=== PATIENT | male | born 1950 | race Caucasian/White ===

== ENCOUNTER 2017-03-02 20:28 | Inpatient (IN) ==
[2017-03-03 05:18] LABS: Basophils % 0.8 %; Eosinophils # 0.1 K/mcL (0.0-0.6); Eosinophils % 1.7 %; Hematocrit 29.9 % (37.5-50.1); Hemoglobin 10.5 g/dL (12.9-16.9); Immature Granulocytes % 0.2 % (0-4); Lymphocytes # 1.9 K/mcL (0.6-4.6); Lymphocytes % 35.1 %; Mean Corpuscular HGB Conc 35.1 g/dL (31.6-35.5); Mean Corpuscular Hemoglobin 34.4 pg (28.0-33.3); Mean Platelet Volume 9.9 fL (9.4-12.4); Monocytes # 0.8 K/mcL (0.0-1.3); Monocytes % 14.8 %; Neutrophils # 2.5 K/mcL (1.6-8.9); Platelet Count 395 K/mcL (140-400); Red Blood Count 3.05 M/mcL (4.19-5.50); Red Cell Distribution Width 12.7 % (11.5-14.5); Segmented Neutrophils % 47.4 %
[2017-03-03 05:34] LABS: INR 1.4; Prothrombin Time 15.4 Seconds (9.4-12.1)
[2017-03-03 05:36] LABS: Activated Partial Thrombo Time 35.9 Seconds (26.0-36.0)
[2017-03-03 05:38] LABS: BUN/Creatinine Ratio 13 (6-26); Blood Urea Nitrogen 9 mg/dL (8-26); Calcium 9.5 mg/dL (8.6-10.8); Carbon Dioxide 21 mEq/L (19-29); Chloride 104 mEq/L (98-109); Glucose 136 mg/dL (70-99); Osmolality,Calculated 277 (280-300); Sodium 133 mEq/L (136-145); eGFR For African Americans > 60 (> 60); eGFR For Non-African Americans > 60 (> 60)
[2017-03-03] MEDS: Magnesium Oxide 400 MG TABLET PO SCH ×2 (09:51→20:52)
[2017-03-03] MEDS: Folic Acid 1 MG TABLET PO SCH (09:51)
[2017-03-03] MEDS: Cyanocobalamin (B-12) 1,000 MCG TABLET PO SCH (09:51)
[2017-03-03] MEDS: *HR* Enoxaparin 40 MG/0.4 ML SYRINGE SQ SCH (09:52)
[2017-03-03] MEDS: Multivit/Ca/Min/Fe/FA 1 TAB TABLET PO SCH (09:52)
[2017-03-03] MEDS: Isosorbide MONOnitrate (24 HR) 30 MG TAB.ER.24H PO SCH (09:52)
[2017-03-03] MEDS: Aspirin Enteric Coated 81 MG Tablet PO SCH (09:52)
[2017-03-03] MEDS: Thiamine (B-1) 100 MG TABLET PO SCH (09:52)
--- NOTE | 2017-03-03 13:29 | Internal Med History&Physical ---
Date of Encounter: 03/03/17 Time of Encounter: 13:27 Assessment and Plan (1) Alcohol withdrawal Current visit: Yes Status: Resolved Possibly was related to the seizure that he had upon admission. Qualifiers: Complication of substance-induced condition: with unspecified complication Qualified Code(s): F10.239 - Alcohol dependence with withdrawal, unspecified (2) Hypertension Current visit: No Status: Chronic Cb size a total well blood pressure is normal Qualifiers: Hypertension type: essential hypertension Qualified Code(s): I10 - Essential (primary) hypertension (3) Lipidemia Current visit: No Status: Acute Positive by history Qualifiers: Hyperlipidemia type: unspecified Qualified Code(s): E78.5 - Hyperlipidemia , unspecified (4) History of alcohol abuse Current visit: No Status: Acute Apparently long-term EtOH use Internal Medicine - H&P: HPI Chief complaint: Seizure EtOH abuse dementia patient's here now for endurance and increasing Admitted From: Hospital to Hospital Transfer Plans for Post Hospital Care: Home History of present illness: Mr. Martin is a 66 year old male Patient was secondary to 8 user had a seizure here low sodium potassium and then became confused and demented and had a difficult time. He still has some confusion and he is cooperative during the day still showing some anxiety and agitation at night Past Med Surg Social Fam HX - Past Medical History Medical history: hyperlipidemia, hypertension, seizures (etoh abuse) Psychiatric history: no psych history - Social History Smoking Status: Former smoker Smokeless Tobacco Status: No Alcohol use: occasionally Drug use: none Internal Medicine - H&P: Meds Aspirin [Lo-Dose Aspirin EC] 81 mg PO DAILY 12/18/16 [History] Atorvastatin [Lipitor] 40 mg PO HS 12/18/16 [History] Calcium/Vit B12/FA/Pyridoxine [Folic Acid-Vit B6-Vit B12 Tab] 400 mg PO DAILY [History] Carvedilol [Coreg] 25 mg PO BID 12/18/16 [History] Cyanocobalamin (Vitamin B-12) [Vitamin B12] 1,000 mcg PO DAILY 12/18/16 [History ] Isosorbide MONOnitrate (24 HR) [Imdur] 15 mg PO DAILY 12/18/16 [History] Docusate [Colace] 100 mg PO BID PRN 03/02/17 [Rx] Ferrous Sulfate 325 mg PO DAILY tab 03/02/17 [Rx] Folic Acid 1 mg PO DAILY tab 03/02/17 [Rx] Magnesium Oxide [Mag-Ox] 400 mg PO BID tab 03/02/17 [Rx] Multivit/Ca/Min/Fe/FA [Thera M Plus] 1 tab PO DAILY tab 03/02/17 [Rx] Quetiapine Fumarate [Seroquel] 50 mg PO HS #15 tab 03/02/17 [Rx] Thiamine (B-1) [Vitamin B-1] 100 mg PO DAILY tab 03/02/17 [Rx] 3 Allergy/AdvReac Type Severity Reaction Status Date / Time No Known Allergies Allergy Verified 03/02/17 20:57 All Systems PM: A 10-system review of systems was performed and is negative for pertinent findings except as documented above in the HPI. - Constitutional Vitals: Temp Pulse Resp BP Pulse Ox 97.6 F 70 18 145/83 97 03/03/17 11:40 03/03/17 11:40 03/03/17 11:40 03/03/17 11:40 03/03/17 11:40 - Head Head exam: Present: atraumatic, normal inspection, normocephalic - Neck Neck exam general surgery: Present: supple, trachea midline. Absent: lymphadenopathy - Respiratory Respiratory exam: Present: CTAB. Absent: accessory muscle use, rales, rhonchi, wheezes - Cardiovascular Cardiovascular exam: Present: RRR, +S1, +S2. Absent: diastolic murmur, gallop, rubs, systolic murmur - Psychiatric Additional comments: Agitation is mostly at night, during the day but some confusion still exists Internal Med - H&P Results - Labs CBC & Chem 7: 03/03/17 05:00 03/03/17 04:50 Labs: Short CBC 03/03/17 Range/Units 05:00 WBC 5.3 (4.3-11.1) K/mcL Hgb 10.5 L (12.9-16.9) g/dL Hct 29.9 L (37.5-50.1) % Plt Count 395 (140-400) K/mcL Neutrophils # 2.5 (1.6-8.9) K/mcL BMP 03/03/17 04:50 Sodium 133 L Potassium 4.0 Chloride 104 Carbon Dioxide 21 BUN 9 Creatinine 0.67 L Glucose 136 H Calcium 9.5 The lab looks pretty good right now
[2017-03-04] MEDS: Ibuprofen 400 MG TABLET PO PRN (03:31)
--- NOTE | 2017-03-04 09:26 | Internal Med Progress Note ---
Date of Encounter: 03/04/17 Time of Encounter: 09:24 - Assessment and plan (1) Anemia Current Visit: No Status: Acute Assessment and plan: Noted to have low H/H he has hx of ETOH abuse labs for iron etc supplment Stool for guiace if not done yet Qualifiers: Anemia type: iron deficiency Iron deficiency anemia type: unspecified iron deficiency Qualified Code(s): D50.9 - Iron deficiency anemia, unspecified (2) Coronary artery disease Current Visit: No Status: Chronic Assessment and plan: stable continue present meds Qualifiers: Coronary Disease-Associated Artery/Lesion type: bypass graft [place] vs. transplanted heart: [place] heart Associated angina: without angina Qualified Code(s): I25.810 - Atherosclerosis of coronary artery bypass graft(s) without angina pectoris (3) Hypertension Current Visit: No Status: Chronic Assessment and plan: stable no new change continue present meds Qualifiers: Hypertension type: essential hypertension Qualified Code(s): I10 - Essential (primary) hypertension (4) Delirium due to another medical condition Current Visit: Yes Status: Acute Assessment and plan: He is doing fine and is back to his normal self . He required a sitter last night however there was no incident . Avoid all meds causing confusion . He wants to go home . He is mentally competent if he decides to go home . Discussed with family . he will benefit with getting his rehab (5) Fracture, ribs Current Visit: Yes Status: Acute Assessment and plan: he has fracture ribs left 7,8,10th Pain control . Local lidoderm nd Motrin with PPI Qualifiers: Rib fracture type: multiple ribs Fracture type: closed Laterality: left Qualified Code(s): S22.42XA - Multiple fractures of ribs, left side, initial encounter for closed fracture - Subjective Interval history: Seen for the first time as cross coverage . Admitted for ETOH withdrawal which has been resolved and now for rehab and to get his strength back to base line He denies any acute issues . Alert and orient and wants to go home . No chest pain Nausea vomiting or diarrhea . eating well . - Constitutional Vitals: Temp Pulse Resp BP Pulse Ox 97.7 F 61 18 124/89 99 03/04/17 07:44 03/04/17 07:44 03/04/17 07:44 03/04/17 07:44 03/04/17 07:44 General appearance: Present: A&O X 3, pleasant, no acute distress, answers questions appropriately. Absent: morbidly obese, severe distress - Head Head exam: Present: atraumatic - Eye Eye exam: Present: EOMI, PERRL Pupils: Present: PERRL - Neck Neck exam general surgery: Present: supple. Absent: tenderness, nuchal rigidity - Respiratory Respiratory exam: Present: chest wall tenderness, CTAB. Absent: accessory muscle use, respiratory distress, rhonchi, stridor, wheezes, tachypnea Additional comments: mild tenderness on side on ribs Chest essnetially clear - Cardiovascular Cardiovascular exam: Present: RRR, +S1, +S2. Absent: diastolic murmur, distant heart sounds, irregular rhythm, JVD - GI/Abdominal GI/Abdominal exam: Present: normal bowel sounds, soft. Absent: firm, guarding - Neurological Exam Neurological exam: Present: CN II-XII intact, oriented X3, no focal deficits. Absent: facial droop, speech deficit Additional comments: No focal; deficit . Examination is within normal limits . He understands and is competent to make decision. Internal Medicine: Result - Labs CBC & Chem 7: 03/03/17 05:00 03/03/17 04:50 - ABG Interpretation ABG results: PT/INR, D-dimer PT 15.4 Seconds (9.4-12.1) H 03/03/17 04:50 Consult Discharge Plan - Plan Referrals: NONE,PCP [Primary Care Provider] -
[2017-03-04] MEDS: Folic Acid 1 MG TABLET PO SCH (09:36)
[2017-03-04] MEDS: Magnesium Oxide 400 MG TABLET PO SCH ×2 (09:36→20:47)
[2017-03-04] MEDS: Isosorbide MONOnitrate (24 HR) 30 MG TAB.ER.24H PO SCH (09:36)
[2017-03-04] MEDS: Multivit/Ca/Min/Fe/FA 1 TAB TABLET PO SCH (09:36)
[2017-03-04] MEDS: Aspirin Enteric Coated 81 MG Tablet PO SCH (09:36)
[2017-03-04] MEDS: Cyanocobalamin (B-12) 1,000 MCG TABLET PO SCH (09:36)
[2017-03-04] MEDS: *HR* Enoxaparin 40 MG/0.4 ML SYRINGE SQ SCH (09:37)
[2017-03-04] MEDS: Thiamine (B-1) 100 MG TABLET PO SCH (09:37)
--- NOTE | 2017-03-05 08:35 | Internal Med Progress Note ---
Date of Encounter: 03/05/17 Time of Encounter: 08:33 - Assessment and plan (1) Anemia Current Visit: No Status: Acute Assessment and plan: [place] sent On iron now , He has not had Colonoscopy or any other workup yet discussed with him and this al could be done as out pt. he has long hcx of ETOH abuse could be upper GI loss as well There was mildy high blood sugars noted as well however this was random .May needs to be re asses again Qualifiers: Anemia type: iron deficiency Iron deficiency anemia type: unspecified iron deficiency Qualified Code(s): D50.9 - Iron deficiency anemia, unspecified (2) Coronary artery disease Current Visit: No Status: Chronic Assessment and plan: Stable no new change . Qualifiers: Coronary Disease-Associated Artery/Lesion type: bypass graft [place] vs. 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 This was all due to his Alcohol withdrawal Some confusion at night but based on his MRI brain he has small vessel disease and atrophy including use of ETOH abuse so he could have mild dementia as well . A proper workup and assessment might be helpful as out patient. At the present time he is fully alert and back to his base line Plan is to have social studies department chair work with family , refer him to an out patient rehab if needed and an out patient rehab (5) Fracture, ribs Current Visit: Yes Status: Acute Assessment and plan: stable pain is well controlled on pRN meds and local lidoderm patch Qualifiers: Rib fracture type: multiple ribs Fracture type: closed Laterality: left Qualified Code(s): S22.42XA - Multiple fractures of ribs, left side, initial encounter for closed fracture - Subjective Interval history: Cross coverage He is doing very well alert and oriented and participating in Rehab .There was some confusion and restlessness at night however didn't require a sitter overall no complains - Constitutional Vitals: Temp Pulse Resp BP Pulse Ox 97.8 F 69 18 150/80 98 03/05/17 07:56 03/05/17 07:56 03/05/17 07:56 03/05/17 07:56 03/05/17 07:56 General appearance: Present: cooperative, A&O X 3, pleasant, no acute distress, answers questions appropriately. Absent: morbidly obese, severe distress - Head Head exam: Present: atraumatic - Eye Eye exam: Present: EOMI, PERRL, conjuntiva pink. Absent: scleral icterus Pupils: Present: PERRL - Neck Neck exam general surgery: Present: supple. Absent: tenderness, nuchal rigidity - Respiratory Respiratory exam: Present: CTAB. Absent: rales, respiratory distress, stridor, wheezes - Cardiovascular Cardiovascular exam: Present: RRR, +S1, +S2. Absent: diastolic murmur, irregular rhythm, JVD, systolic murmur - GI/Abdominal GI/Abdominal exam: Present: normal bowel sounds, soft. Absent: guarding, rigid - Neurological Exam Neurological exam: Present: CN II-XII intact, oriented X3, no focal deficits. Absent: facial droop, speech deficit Additional comments: Non focal examination Internal Medicine: Result - Labs CBC & Chem 7: 03/03/17 05:00 03/03/17 04:50 - ABG Interpretation ABG results: PT/INR, D-dimer PT 15.4 Seconds (9.4-12.1) H 03/03/17 04:50 Consult Discharge Plan - Plan Referrals: NONE,PCP [Primary Care Provider] -
[2017-03-05] MEDS: *HR* Enoxaparin 40 MG/0.4 ML SYRINGE SQ SCH (09:02)
[2017-03-05] MEDS: Folic Acid 1 MG TABLET PO SCH (09:03)
[2017-03-05] MEDS: Thiamine (B-1) 100 MG TABLET PO SCH (09:03)
[2017-03-05] MEDS: Ibuprofen 400 MG TABLET PO PRN ×2 (09:03→21:45)
[2017-03-05] MEDS: Cyanocobalamin (B-12) 1,000 MCG TABLET PO SCH (09:03)
[2017-03-05] MEDS: Aspirin Enteric Coated 81 MG Tablet PO SCH (09:03)
[2017-03-05] MEDS: Isosorbide MONOnitrate (24 HR) 30 MG TAB.ER.24H PO SCH (09:03)
[2017-03-05] MEDS: Magnesium Oxide 400 MG TABLET PO SCH ×2 (09:03→20:12)
[2017-03-05] MEDS: Multivit/Ca/Min/Fe/FA 1 TAB TABLET PO SCH (09:03)
[2017-03-06 05:23] LABS: Basophils % 0.7 %; Eosinophils # 0.3 K/mcL (0.0-0.6); Eosinophils % 4.6 %; Hematocrit 30.3 % (37.5-50.1); Hemoglobin 10.5 g/dL (12.9-16.9); Immature Granulocytes % 0.5 % (0-4); Lymphocytes # 1.9 K/mcL (0.6-4.6); Lymphocytes % 34.3 %; Mean Corpuscular HGB Conc 34.7 g/dL (31.6-35.5); Mean Corpuscular Hemoglobin 34.1 pg (28.0-33.3); Mean Corpuscular Volume 98.4 fL (83.0-100.0); Mean Platelet Volume 9.4 fL (9.4-12.4); Monocytes # 0.9 K/mcL (0.0-1.3); Monocytes % 15.7 %; Neutrophils # 2.5 K/mcL (1.6-8.9); Platelet Count 402 K/mcL (140-400); Red Blood Count 3.08 M/mcL (4.19-5.50); Red Cell Distribution Width 12.8 % (11.5-14.5); Segmented Neutrophils % 44.2 %
[2017-03-06 05:33] LABS: BUN/Creatinine Ratio 13 (6-26); Blood Urea Nitrogen 9 mg/dL (8-26); Calcium 9.6 mg/dL (8.6-10.8); Carbon Dioxide 25 mEq/L (19-29); Chloride 104 mEq/L (98-109); Glucose 93 mg/dL (70-99); Osmolality,Calculated 278 (280-300); Potassium 4.2 mEq/L (3.5-4.5); Sodium 135 mEq/L (136-145); eGFR For African Americans > 60 (> 60); eGFR For Non-African Americans > 60 (> 60)
[2017-03-06 07:05] VITALS: BP 128/71
[2017-03-06] MEDS: Isosorbide MONOnitrate (24 HR) 30 MG TAB.ER.24H PO SCH (09:37)
[2017-03-06] MEDS: Cyanocobalamin (B-12) 1,000 MCG TABLET PO SCH (09:46)
[2017-03-06] MEDS: Multivit/Ca/Min/Fe/FA 1 TAB TABLET PO SCH (09:46)
[2017-03-06] MEDS: Magnesium Oxide 400 MG TABLET PO SCH (09:46)
[2017-03-06] MEDS: Thiamine (B-1) 100 MG TABLET PO SCH (09:46)
[2017-03-06] MEDS: *HR* Enoxaparin 40 MG/0.4 ML SYRINGE SQ SCH (09:46)
[2017-03-06] MEDS: Folic Acid 1 MG TABLET PO SCH (09:46)
[2017-03-06] MEDS: Aspirin Enteric Coated 81 MG Tablet PO SCH (09:46)
[2017-03-06] MEDS: Ibuprofen 400 MG TABLET PO PRN (09:46)
--- NOTE | 2017-03-06 14:12 | Discharge Summary ---
Date of Encounter: 03/06/17 Time of Encounter: 14:10 - Discharge Diagnosis (1) Alcohol withdrawal Priority: Primary Status: Chronic Qualifiers: Complication of substance-induced condition: with unspecified complication Qualified Code(s): F10.239 - Alcohol dependence with withdrawal, unspecified (2) Hypertension Priority: Secondary Status: Chronic Qualifiers: Hypertension type: essential hypertension Qualified Code(s): I10 - Essential (primary) hypertension (3) Lipidemia Priority: Secondary Status: Acute Qualifiers: Hyperlipidemia type: unspecified Qualified Code(s): E78.5 - Hyperlipidemia , unspecified (4) History of alcohol abuse Priority: Primary Status: Acute - Discharge Medications Home Medications: Aspirin [Lo-Dose Aspirin EC] 81 mg PO DAILY 12/18/16 [History] Atorvastatin [Lipitor] 40 mg PO HS 12/18/16 [History] Calcium/Vit B12/FA/Pyridoxine [Folic Acid-Vit B6-Vit B12 Tab] 400 mg PO DAILY [History] Carvedilol [Coreg] 25 mg PO BID 12/18/16 [History] Cyanocobalamin (Vitamin B-12) [Vitamin B12] 1,000 mcg PO DAILY 12/18/16 [History ] Isosorbide MONOnitrate (24 HR) [Imdur] 15 mg PO DAILY 12/18/16 [History] Docusate [Colace] 100 mg PO BID PRN 03/02/17 [Rx] Ferrous Sulfate 325 mg PO DAILY tab 03/02/17 [Rx] Folic Acid 1 mg PO DAILY tab 03/02/17 [Rx] Magnesium Oxide [Mag-Ox] 400 mg PO BID tab 03/02/17 [Rx] Multivit/Ca/Min/Fe/FA [Thera M Plus] 1 tab PO DAILY tab 03/02/17 [Rx] Quetiapine Fumarate [Seroquel] 50 mg PO HS #15 tab 03/02/17 [Rx] Thiamine (B-1) [Vitamin B-1] 100 mg PO DAILY tab 03/02/17 [Rx] Allergies/Adverse Reactions: 3 Allergy/AdvReac Type Severity Reaction Status Date / Time No Known Allergies Allergy Verified 03/02/17 20:57 Date of admission: 03/02/17 20:28 Primary care physician: PCP NONE Consults: 03/02/17 21:21 Consult to Occupational Therapy [CONS] Routine Comment: Evaluation for treatment Reason for Consult: Eval Consult to Physical Therapy [CONS] Routine Comment: Evaluation for treatment Reason for Consult: Eval Consult to Recreational Therapy [CONS] Routine Comment: Discharging clinician: Carlos Manuel Blackmon Anticipated date of discharge: 03/06/17 - Discharge Instructions Follow Up With: NONE,PCP [Primary Care Provider] - Hospital course: Mr. Martin is a 66 year old male Patient had a hyponatremic episode in addition to that had a serious EtOH problem and suffered a grand mal seizure. He was transferred to [place] where he was very confused combative and demented for some time. My concern is whether permanent damage has I question the possibility of Wernicke Korsakoff syndrome. He has a wide stance gait and slightly bent over ambulation. been done - Time Spent with Patient Total time spent providing and/or coordinating discharge services: - Constitutional Vitals: Temp Pulse Resp BP Pulse Ox 98.1 F 61 15 128/71 95 03/06/17 07:00 03/06/17 11:04 03/06/17 11:04 03/06/17 11:04 03/06/17 11:04 General appearance: Present: cooperative, A&O X 3, pleasant, no acute distress, answers questions appropriately. Absent: morbidly obese, severe distress
== END 2017-03-06 14:35 | disposition home or self-care (01) | DRG 556 ==
LOC: INPGRE 20:28
PROVIDERS: ADMIT Internal Medicine; ATTEND Internal Medicine

== ENCOUNTER 2020-05-14 16:23 | Inpatient (IN) ==
[2020-05-15] MEDS: carvediloL 25 MG TABLET PO SCH (19:42)
[2020-05-16] MEDS: *HR* Enoxaparin 40 MG/0.4 ML SYRINGE SQ SCH (04:52)
[2020-05-16 06:03] LABS: Basophils # 0.1 K/mcL (0.0-0.2); Basophils % 1.1 %; Eosinophils # 0.1 K/mcL (0.0-0.6); Eosinophils % 2.3 %; Hematocrit 22.3 % (37.5-50.1); Hemoglobin 8.3 g/dL (12.9-16.9); Immature Granulocytes % 0.2 % (0-4); Lymphocytes # 1.9 K/mcL (0.6-4.6); Lymphocytes % 42.2 %; Mean Corpuscular HGB Conc 37.2 g/dL (31.6-35.5); Mean Corpuscular Hemoglobin 36.4 pg (28.0-33.3); Mean Corpuscular Volume 97.8 fL (83.0-100.0); Mean Platelet Volume 8.7 fL (9.4-12.4); Monocytes # 0.7 K/mcL (0.0-1.3); Monocytes % 16.3 %; Neutrophils # 1.7 K/mcL (1.6-8.9); Platelet Count 147 K/mcL (140-400); Red Blood Count 2.28 M/mcL (4.19-5.50); Red Cell Distribution Width 11.9 % (11.5-14.5); Segmented Neutrophils % 37.9 %; White Blood Count 4.4 K/mcL (4.3-11.1)
[2020-05-16 06:21] LABS: Alanine Aminotransferase 39 Units/L (7-52); Albumin 3.7 g/dL (3.5-5.7); Albumin/Globulin Ratio 1.9 (1.1-2.2); Alkaline Phosphatase 44 Units/L (34-104); Aspartate Amino Transferase 32 Units/L (13-39); BUN/Creatinine Ratio 17 (6-26); Bilirubin,Total 0.6 mg/dL (0.3-1.0); Blood Urea Nitrogen 9 mg/dL (8-23); Calcium 8.7 mg/dL (8.6-10.3); Carbon Dioxide 23 mEq/L (23-29); Chloride 96 mEq/L (98-107); Globulin 1.9 g/dL (2.4-3.5); Glucose 100 mg/dL (70-105); Magnesium 1.8 mg/dL (1.6-2.6); Osmolality,Calculated 259 (280-300); Potassium 3.6 mEq/L (3.5-5.1); Sodium 125 mEq/L (136-145); Total Protein 5.6 g/dL (6.4-8.9); eGFR For African Americans > 60 (> 60); eGFR For Non-African Americans > 60 (> 60)
[2020-05-16] MEDS: carvediloL 25 MG TABLET PO SCH ×2 (09:17→20:48)
[2020-05-16] MEDS: Isosorbide MONOnitrate (24 HR) 30 MG TAB.ER.24H PO SCH (09:17)
[2020-05-16] MEDS: Aspirin Enteric Coated 81 MG Tablet PO SCH (09:17)
[2020-05-16] MEDS: amLODIPine 5 MG TABLET PO SCH (09:17)
[2020-05-16 15:16] LABS: Bilirubin,Urine Negative (Negative); Blood,Urine Negative (Negative); Clarity,Urine Clear (Clear); Color,Urine Yellow (Yellow); Glucose,Urine (UA) 250 mg/dL (Normal); Ketones,Urine Negative (Negative); Leukocyte Esterase,Urine Negative (Negative); Nitrite,Urine Negative (Negative); PH,Urine 6.5 pH Units (5.0-8.0); Protein,Urine Negative (Neg-Trace); Specific Gravity,Urine 1.025 (1.010-1.025); Urobilinogen,Urine Normal (Normal)
[2020-05-16 15:49] LABS: Squamous Epithelial Cell,Urine Few per hpf (None-Few)
[2020-05-16] MEDS ORDERED: *HR* Dextrose 50 % in Water (Vial) 50 ML VIAL IVP PRN (18:23)
[2020-05-16] MEDS ORDERED: Dextrose Gel 15 GM/37.5 ML TUBE PO PRN ×2 (18:23)
[2020-05-16] MEDS ORDERED: D5% in Water 1,000 ML IVC PRN (18:23)
[2020-05-16] MEDS: Insulin LISPRO 300 UNITS/3 ML VIAL SQ SCH (20:45)
[2020-05-17 06:17] LABS: Basophils % 0.7 %; Eosinophils # 0.1 K/mcL (0.0-0.6); Eosinophils % 1.4 %; Hematocrit 21.1 % (37.5-50.1); Hemoglobin 7.8 g/dL (12.9-16.9); Immature Granulocytes % 0.5 % (0-4); Lymphocytes # 1.6 K/mcL (0.6-4.6); Lymphocytes % 37.2 %; Mean Corpuscular Hemoglobin 36.3 pg (28.0-33.3); Mean Corpuscular Volume 98.1 fL (83.0-100.0); Mean Platelet Volume 8.9 fL (9.4-12.4); Monocytes # 0.8 K/mcL (0.0-1.3); Monocytes % 19.7 %; Neutrophils # 1.7 K/mcL (1.6-8.9); Platelet Count 171 K/mcL (140-400); Red Blood Count 2.15 M/mcL (4.19-5.50); Red Cell Distribution Width 11.8 % (11.5-14.5); Segmented Neutrophils % 40.5 %; White Blood Count 4.2 K/mcL (4.3-11.1)
[2020-05-17] MEDS: *HR* Enoxaparin 40 MG/0.4 ML SYRINGE SQ SCH (06:25)
[2020-05-17 06:29] LABS: BUN/Creatinine Ratio 13 (6-26); Blood Urea Nitrogen 7 mg/dL (8-23); Calcium 8.8 mg/dL (8.6-10.3); Carbon Dioxide 25 mEq/L (23-29); Chloride 96 mEq/L (98-107); Glucose 98 mg/dL (70-105); Osmolality,Calculated 260 (280-300); Potassium 3.7 mEq/L (3.5-5.1); Sodium 126 mEq/L (136-145); eGFR For African Americans > 60 (> 60); eGFR For Non-African Americans > 60 (> 60)
[2020-05-17] MEDS: Insulin LISPRO 300 UNITS/3 ML VIAL SQ SCH ×4 (09:30→20:02)
[2020-05-17] MEDS: Aspirin Enteric Coated 81 MG Tablet PO SCH (09:30)
[2020-05-17] MEDS: amLODIPine 5 MG TABLET PO SCH (09:31)
[2020-05-17] MEDS: Isosorbide MONOnitrate (24 HR) 30 MG TAB.ER.24H PO SCH (09:31)
[2020-05-17] MEDS: carvediloL 25 MG TABLET PO SCH ×2 (09:31→20:43)
[2020-05-18] MEDS: *HR* Enoxaparin 40 MG/0.4 ML SYRINGE SQ SCH (06:27)
[2020-05-18 07:06] VITALS: BP 121/70
[2020-05-18] MEDS: carvediloL 25 MG TABLET PO SCH (09:09)
[2020-05-18] MEDS: Aspirin Enteric Coated 81 MG Tablet PO SCH (09:09)
[2020-05-18] MEDS: amLODIPine 5 MG TABLET PO SCH (09:09)
[2020-05-18] MEDS: Insulin LISPRO 300 UNITS/3 ML VIAL SQ SCH ×2 (09:09→12:09)
[2020-05-18] MEDS: Isosorbide MONOnitrate (24 HR) 30 MG TAB.ER.24H PO SCH (09:10)
[2020-05-18 09:52] LABS: Estimated Average Glucose 117 mg/dl
== END 2020-05-18 14:30 | disposition home or self-care (01) | DRG 641 ==
LOC: INPGRE 05-15 17:27
PROVIDERS: ADMIT Family Medicine; ATTEND Family Medicine

== ENCOUNTER 2021-10-21 14:44 | Inpatient (IN) ==
[2021-10-21] MEDS ORDERED: Saline Nasal Spray 44 ML BOTTLE NS PRN (16:11)
[2021-10-21] MEDS ORDERED: Nicotine 2 MG GUM BC PRN (16:11)
[2021-10-21] MEDS: QUEtiapine Fumarate 25 MG TABLET PO SCH (22:07)
[2021-10-21] MEDS: *HR* HYDROcodone/Acet 5/325 mg TABLET PO PRN (22:07)
[2021-10-21] MEDS: Artificial Tears SOLN 15 ML BOTTLE BOTH EYES SCH (22:13)
[2021-10-21] MEDS: carvediloL 25 MG TABLET PO SCH (22:29)
[2021-10-21] MEDS ORDERED: Mag Hydrox/Al Hydrox/Simeth 30 ML UDC PO PRN (23:12)
[2021-10-22] MEDS: *HR* HYDROcodone/Acet 5/325 mg TABLET PO PRN ×2 (04:11→20:05)
[2021-10-22 05:44] LABS: Basophils % 0.4 %; Eosinophils # 0.1 K/mcL (0.0-0.6); Eosinophils % 1.3 %; Hematocrit 22.5 % (37.5-50.1); Hemoglobin 7.7 g/dL (12.9-16.9); Immature Granulocytes % 0.6 % (0-4); Lymphocytes # 1.7 K/mcL (0.6-4.6); Lymphocytes % 24.7 %; Mean Corpuscular HGB Conc 34.2 g/dL (31.6-35.5); Mean Corpuscular Volume 102.3 fL (83.0-100.0); Mean Platelet Volume 9.4 fL (9.4-12.4); Monocytes # 1.5 K/mcL (0.0-1.3); Monocytes % 20.9 %; Neutrophils # 3.6 K/mcL (1.6-8.9); Platelet Count 186 K/mcL (140-400); Red Cell Distribution Width 14.2 % (11.5-14.5); Segmented Neutrophils % 52.1 %
[2021-10-22 06:05] LABS: BUN/Creatinine Ratio 24 (6-26); Blood Urea Nitrogen 16 mg/dL (8-23); Calcium 8.4 mg/dL (8.6-10.3); Carbon Dioxide 22 mEq/L (23-29); Chloride 105 mEq/L (98-107); Glucose 104 mg/dL (70-105); Osmolality,Calculated 277 (280-300); Potassium 3.9 mEq/L (3.5-5.1); Sodium 133 mEq/L (136-145); eGFR For African Americans > 60 (> 60); eGFR For Non-African Americans > 60 (> 60)
[2021-10-22] MEDS: Artificial Tears SOLN 15 ML BOTTLE BOTH EYES SCH ×2 (08:43→20:07)
[2021-10-22] MEDS: polyethylene glycoL 3350 17 GM POWD.PACK PO SCH (08:43)
[2021-10-22] MEDS: Folic Acid 1 MG TABLET PO SCH (08:44)
[2021-10-22] MEDS: Nicotine 21 MG PATCH.TD24 TD SCH (08:44)
[2021-10-22] MEDS: Multivit/Ca/Min/Fe/FA 1 TAB TABLET PO SCH (08:44)
[2021-10-22] MEDS: *HR* Enoxaparin 40 MG/0.4 ML SYRINGE SQ SCH (08:44)
[2021-10-22] MEDS: Cholecalciferol (D-3) 1,000 UNIT (25MCG) TABLET PO SCH (08:44)
[2021-10-22] MEDS: Isosorbide MONOnitrate (24 HR) 30 MG TAB.ER.24H PO SCH (08:44)
[2021-10-22] MEDS: carvediloL 25 MG TABLET PO SCH ×2 (08:44→17:05)
[2021-10-22] MEDS: Thiamine (B-1) 100 MG TABLET PO SCH (08:45)
[2021-10-22] MEDS: Magnesium Oxide 400 MG TABLET PO SCH (08:45)
[2021-10-22] MEDS: Aspirin 81 MG TAB.CHEW PO SCH (08:45)
[2021-10-22] MEDS ORDERED: *HR* LORazepam 2 MG/ML VIAL IVP PRN (11:00)
[2021-10-22] MEDS ORDERED: 0.9 % Sodium Chloride 250 ML IVC SCH (16:00)
[2021-10-22 16:25] LABS: Hematocrit 22.9 % (37.5-50.1); Hemoglobin 7.8 g/dL (12.9-16.9)
[2021-10-22] MEDS ORDERED: 0.9 % Sodium Chloride 250 ML ONE (17:15)
[2021-10-22] MEDS: QUEtiapine Fumarate 25 MG TABLET PO SCH (20:07)
[2021-10-23 06:25] LABS: Basophils % 0.5 %; Eosinophils # 0.1 K/mcL (0.0-0.6); Eosinophils % 1.7 %; Hematocrit 27.6 % (37.5-50.1); Hemoglobin 9.5 g/dL (12.9-16.9); Immature Granulocytes % 0.8 % (0-4); Lymphocytes # 1.5 K/mcL (0.6-4.6); Lymphocytes % 24.8 %; Mean Corpuscular HGB Conc 34.4 g/dL (31.6-35.5); Mean Corpuscular Hemoglobin 33.5 pg (28.0-33.3); Mean Corpuscular Volume 97.2 fL (83.0-100.0); Mean Platelet Volume 9.2 fL (9.4-12.4); Monocytes # 1.2 K/mcL (0.0-1.3); Monocytes % 20.6 %; Neutrophils # 3.1 K/mcL (1.6-8.9); Platelet Count 237 K/mcL (140-400); Red Blood Count 2.84 M/mcL (4.19-5.50); Red Cell Distribution Width 16.2 % (11.5-14.5); Segmented Neutrophils % 51.6 %; White Blood Count 5.9 K/mcL (4.3-11.1)
[2021-10-23 06:53] LABS: BUN/Creatinine Ratio 20 (6-26); Blood Urea Nitrogen 13 mg/dL (8-23); Calcium 8.3 mg/dL (8.6-10.3); Carbon Dioxide 22 mEq/L (23-29); Chloride 103 mEq/L (98-107); Glucose 104 mg/dL (70-105); Osmolality,Calculated 274 (280-300); Potassium 3.9 mEq/L (3.5-5.1); Sodium 132 mEq/L (136-145); eGFR For African Americans > 60 (> 60); eGFR For Non-African Americans > 60 (> 60)
[2021-10-23] MEDS: Cholecalciferol (D-3) 1,000 UNIT (25MCG) TABLET PO SCH (08:55)
[2021-10-23] MEDS: *HR* Enoxaparin 40 MG/0.4 ML SYRINGE SQ SCH (08:55)
[2021-10-23] MEDS: Thiamine (B-1) 100 MG TABLET PO SCH (08:55)
[2021-10-23] MEDS: Folic Acid 1 MG TABLET PO SCH (08:55)
[2021-10-23] MEDS: Isosorbide MONOnitrate (24 HR) 30 MG TAB.ER.24H PO SCH (08:55)
[2021-10-23] MEDS: Aspirin 81 MG TAB.CHEW PO SCH (08:55)
[2021-10-23] MEDS: Magnesium Oxide 400 MG TABLET PO SCH (08:55)
[2021-10-23] MEDS: carvediloL 25 MG TABLET PO SCH ×2 (08:55→16:21)
[2021-10-23] MEDS: Multivit/Ca/Min/Fe/FA 1 TAB TABLET PO SCH (08:55)
[2021-10-23] MEDS: Nicotine 21 MG PATCH.TD24 TD SCH (08:56)
[2021-10-23] MEDS: polyethylene glycoL 3350 17 GM POWD.PACK PO SCH (08:56)
[2021-10-23] MEDS: Artificial Tears SOLN 15 ML BOTTLE BOTH EYES SCH ×2 (08:56→22:00)
[2021-10-23] MEDS: *HR* HYDROcodone/Acet 5/325 mg TABLET PO PRN (11:39)
[2021-10-23 12:39] LABS: % Iron Saturation 21 % (20-55); Iron 40 mcg/dL (65-175); Transferrin 137 mg/dL (203-362)
[2021-10-23] MEDS: QUEtiapine Fumarate 25 MG TABLET PO SCH (21:58)
[2021-10-24] MEDS: Multivit/Ca/Min/Fe/FA 1 TAB TABLET PO SCH (09:20)
[2021-10-24] MEDS: Isosorbide MONOnitrate (24 HR) 30 MG TAB.ER.24H PO SCH (09:20)
[2021-10-24] MEDS: Aspirin 81 MG TAB.CHEW PO SCH (09:20)
[2021-10-24] MEDS: *HR* Enoxaparin 40 MG/0.4 ML SYRINGE SQ SCH (09:20)
[2021-10-24] MEDS: Magnesium Oxide 400 MG TABLET PO SCH (09:21)
[2021-10-24] MEDS: *HR* HYDROcodone/Acet 5/325 mg TABLET PO PRN ×2 (09:21→18:19)
[2021-10-24] MEDS: Cholecalciferol (D-3) 1,000 UNIT (25MCG) TABLET PO SCH (09:21)
[2021-10-24] MEDS: carvediloL 25 MG TABLET PO SCH ×2 (09:21→14:17)
[2021-10-24] MEDS: Thiamine (B-1) 100 MG TABLET PO SCH (09:21)
[2021-10-24] MEDS: Folic Acid 1 MG TABLET PO SCH (09:21)
[2021-10-24] MEDS: Nicotine 21 MG PATCH.TD24 TD SCH (09:22)
[2021-10-24] MEDS: polyethylene glycoL 3350 17 GM POWD.PACK PO SCH (09:23)
[2021-10-24] MEDS: Artificial Tears SOLN 15 ML BOTTLE BOTH EYES SCH ×2 (09:23→21:42)
[2021-10-24] MEDS: QUEtiapine Fumarate 25 MG TABLET PO SCH (21:41)
[2021-10-25] MEDS: *HR* HYDROcodone/Acet 5/325 mg TABLET PO PRN ×3 (04:57→23:42)
[2021-10-25] MEDS: Isosorbide MONOnitrate (24 HR) 30 MG TAB.ER.24H PO SCH (08:26)
[2021-10-25] MEDS: *HR* Enoxaparin 40 MG/0.4 ML SYRINGE SQ SCH (08:26)
[2021-10-25] MEDS: Aspirin 81 MG TAB.CHEW PO SCH (08:26)
[2021-10-25] MEDS: Magnesium Oxide 400 MG TABLET PO SCH (08:27)
[2021-10-25] MEDS: Cholecalciferol (D-3) 1,000 UNIT (25MCG) TABLET PO SCH (08:27)
[2021-10-25] MEDS: Folic Acid 1 MG TABLET PO SCH (08:27)
[2021-10-25] MEDS: Thiamine (B-1) 100 MG TABLET PO SCH (08:27)
[2021-10-25] MEDS: carvediloL 25 MG TABLET PO SCH ×2 (08:27→15:43)
[2021-10-25] MEDS: Multivit/Ca/Min/Fe/FA 1 TAB TABLET PO SCH (08:27)
[2021-10-25] MEDS: Nicotine 21 MG PATCH.TD24 TD SCH (08:27)
[2021-10-25] MEDS: Artificial Tears SOLN 15 ML BOTTLE BOTH EYES SCH ×2 (08:28→21:29)
[2021-10-25] MEDS: polyethylene glycoL 3350 17 GM POWD.PACK PO SCH (08:28)
[2021-10-25] MEDS ORDERED: *HR* HYDROcodone/Acet 5/325 mg TABLET PO ONE (15:31)
[2021-10-25] MEDS: QUEtiapine Fumarate 25 MG TABLET PO SCH (21:28)
[2021-10-26] MEDS: Multivit/Ca/Min/Fe/FA 1 TAB TABLET PO SCH (08:48)
[2021-10-26] MEDS: polyethylene glycoL 3350 17 GM POWD.PACK PO SCH (08:48)
[2021-10-26] MEDS: Isosorbide MONOnitrate (24 HR) 30 MG TAB.ER.24H PO SCH (08:48)
[2021-10-26] MEDS: Nicotine 21 MG PATCH.TD24 TD SCH (08:48)
[2021-10-26] MEDS: Folic Acid 1 MG TABLET PO SCH (08:48)
[2021-10-26] MEDS: *HR* Enoxaparin 40 MG/0.4 ML SYRINGE SQ SCH (08:48)
[2021-10-26] MEDS: Cholecalciferol (D-3) 1,000 UNIT (25MCG) TABLET PO SCH (08:48)
[2021-10-26] MEDS: Thiamine (B-1) 100 MG TABLET PO SCH (08:48)
[2021-10-26] MEDS: Magnesium Oxide 400 MG TABLET PO SCH (08:48)
[2021-10-26] MEDS: carvediloL 25 MG TABLET PO SCH ×2 (08:48→17:15)
[2021-10-26] MEDS: Aspirin 81 MG TAB.CHEW PO SCH (08:48)
[2021-10-26] MEDS: Artificial Tears SOLN 15 ML BOTTLE BOTH EYES SCH ×2 (08:51→20:41)
[2021-10-26] MEDS: *HR* HYDROcodone/Acet 5/325 mg TABLET PO PRN ×3 (10:54→23:45)
[2021-10-26] MEDS: QUEtiapine Fumarate 25 MG TABLET PO SCH (20:39)
[2021-10-27 04:53] LABS: Hematocrit 27.4 % (37.5-50.1); Hemoglobin 9.2 g/dL (12.9-16.9); Mean Corpuscular HGB Conc 33.6 g/dL (31.6-35.5); Mean Corpuscular Hemoglobin 33.1 pg (28.0-33.3); Mean Corpuscular Volume 98.6 fL (83.0-100.0); Mean Platelet Volume 9.2 fL (9.4-12.4); Platelet Count 304 K/mcL (140-400); Red Blood Count 2.78 M/mcL (4.19-5.50); White Blood Count 6.2 K/mcL (4.3-11.1)
[2021-10-27 05:08] LABS: Alanine Aminotransferase 48 Units/L (7-52); Albumin 3.1 g/dL (3.5-5.7); Alkaline Phosphatase 87 Units/L (34-104); Aspartate Amino Transferase 30 Units/L (13-39); BUN/Creatinine Ratio 22 (6-26); Bilirubin,Total 0.9 mg/dL (0.3-1.0); Blood Urea Nitrogen 15 mg/dL (8-23); Carbon Dioxide 24 mEq/L (23-29); Chloride 104 mEq/L (98-107); Glucose 99 mg/dL (70-105); Magnesium 1.7 mg/dL (1.6-2.6); Osmolality,Calculated 281 (280-300); Sodium 135 mEq/L (136-145); Total Protein 6.1 g/dL (6.4-8.9); eGFR For African Americans > 60 (> 60); eGFR For Non-African Americans > 60 (> 60)
[2021-10-27] MEDS: Nicotine 21 MG PATCH.TD24 TD SCH (08:50)
[2021-10-27] MEDS: Isosorbide MONOnitrate (24 HR) 30 MG TAB.ER.24H PO SCH (08:50)
[2021-10-27] MEDS: carvediloL 25 MG TABLET PO SCH ×2 (08:50→16:22)
[2021-10-27] MEDS: *HR* Enoxaparin 40 MG/0.4 ML SYRINGE SQ SCH (08:50)
[2021-10-27] MEDS: Aspirin 81 MG TAB.CHEW PO SCH (08:50)
[2021-10-27] MEDS: Multivit/Ca/Min/Fe/FA 1 TAB TABLET PO SCH (08:50)
[2021-10-27] MEDS: Folic Acid 1 MG TABLET PO SCH (08:50)
[2021-10-27] MEDS: Thiamine (B-1) 100 MG TABLET PO SCH (08:50)
[2021-10-27] MEDS: Cholecalciferol (D-3) 1,000 UNIT (25MCG) TABLET PO SCH (08:50)
[2021-10-27] MEDS: Magnesium Oxide 400 MG TABLET PO SCH (08:50)
[2021-10-27] MEDS: Artificial Tears SOLN 15 ML BOTTLE BOTH EYES SCH ×2 (08:51→20:28)
[2021-10-27] MEDS: polyethylene glycoL 3350 17 GM POWD.PACK PO SCH (08:51)
[2021-10-27] MEDS: *HR* HYDROcodone/Acet 5/325 mg TABLET PO PRN ×2 (11:58→20:27)
[2021-10-27] MEDS: QUEtiapine Fumarate 25 MG TABLET PO SCH (20:26)
[2021-10-28] MEDS: *HR* HYDROcodone/Acet 5/325 mg TABLET PO PRN ×2 (04:29→17:51)
[2021-10-28] MEDS: Thiamine (B-1) 100 MG TABLET PO SCH (09:04)
[2021-10-28] MEDS: Isosorbide MONOnitrate (24 HR) 30 MG TAB.ER.24H PO SCH (09:05)
[2021-10-28] MEDS: Magnesium Oxide 400 MG TABLET PO SCH (09:05)
[2021-10-28] MEDS: Cholecalciferol (D-3) 1,000 UNIT (25MCG) TABLET PO SCH (09:05)
[2021-10-28] MEDS: carvediloL 25 MG TABLET PO SCH ×2 (09:05→17:50)
[2021-10-28] MEDS: Folic Acid 1 MG TABLET PO SCH (09:05)
[2021-10-28] MEDS: Multivit/Ca/Min/Fe/FA 1 TAB TABLET PO SCH (09:05)
[2021-10-28] MEDS: Nicotine 21 MG PATCH.TD24 TD SCH (09:06)
[2021-10-28] MEDS: Aspirin 81 MG TAB.CHEW PO SCH (09:06)
[2021-10-28] MEDS: polyethylene glycoL 3350 17 GM POWD.PACK PO SCH (09:06)
[2021-10-28] MEDS: Artificial Tears SOLN 15 ML BOTTLE BOTH EYES SCH ×2 (09:06→21:48)
[2021-10-28] MEDS: *HR* Enoxaparin 40 MG/0.4 ML SYRINGE SQ SCH (09:06)
[2021-10-28] MEDS: QUEtiapine Fumarate 25 MG TABLET PO SCH (21:48)
[2021-10-29] MEDS: Cholecalciferol (D-3) 1,000 UNIT (25MCG) TABLET PO SCH (09:01)
[2021-10-29] MEDS: Multivit/Ca/Min/Fe/FA 1 TAB TABLET PO SCH (09:01)
[2021-10-29] MEDS: Magnesium Oxide 400 MG TABLET PO SCH (09:01)
[2021-10-29] MEDS: Nicotine 21 MG PATCH.TD24 TD SCH (09:01)
[2021-10-29] MEDS: Folic Acid 1 MG TABLET PO SCH (09:01)
[2021-10-29] MEDS: Aspirin 81 MG TAB.CHEW PO SCH (09:01)
[2021-10-29] MEDS: carvediloL 25 MG TABLET PO SCH ×2 (09:01→17:11)
[2021-10-29] MEDS: Isosorbide MONOnitrate (24 HR) 30 MG TAB.ER.24H PO SCH (09:01)
[2021-10-29] MEDS: Thiamine (B-1) 100 MG TABLET PO SCH (09:01)
[2021-10-29] MEDS: polyethylene glycoL 3350 17 GM POWD.PACK PO SCH (09:02)
[2021-10-29] MEDS: Artificial Tears SOLN 15 ML BOTTLE BOTH EYES SCH ×2 (09:02→22:23)
[2021-10-29] MEDS: *HR* Enoxaparin 40 MG/0.4 ML SYRINGE SQ SCH (09:02)
[2021-10-29] MEDS: *HR* HYDROcodone/Acet 5/325 mg TABLET PO PRN ×2 (09:06→22:29)
[2021-10-29] MEDS: QUEtiapine Fumarate 25 MG TABLET PO SCH (22:19)
[2021-10-30 08:55] LABS: Hematocrit 30.9 % (37.5-50.1); Hemoglobin 10.4 g/dL (12.9-16.9); Mean Corpuscular HGB Conc 33.7 g/dL (31.6-35.5); Mean Corpuscular Hemoglobin 33.5 pg (28.0-33.3); Mean Corpuscular Volume 99.7 fL (83.0-100.0); Platelet Count 378 K/mcL (140-400); White Blood Count 5.6 K/mcL (4.3-11.1)
[2021-10-30 09:09] LABS: Alanine Aminotransferase 44 Units/L (7-52); Albumin 3.4 g/dL (3.5-5.7); Alkaline Phosphatase 119 Units/L (34-104); Aspartate Amino Transferase 29 Units/L (13-39); BUN/Creatinine Ratio 19 (6-26); Blood Urea Nitrogen 13 mg/dL (8-23); Calcium 9.3 mg/dL (8.6-10.3); Carbon Dioxide 25 mEq/L (23-29); Chloride 100 mEq/L (98-107); Globulin 3.4 g/dL (2.4-3.5); Glucose 105 mg/dL (70-105); Magnesium 1.8 mg/dL (1.6-2.6); Osmolality,Calculated 280 (280-300); Potassium 3.8 mEq/L (3.5-5.1); Sodium 135 mEq/L (136-145); Total Protein 6.8 g/dL (6.4-8.9); eGFR For African Americans > 60 (> 60); eGFR For Non-African Americans > 60 (> 60)
[2021-10-30] MEDS: Magnesium Oxide 400 MG TABLET PO SCH (10:22)
[2021-10-30] MEDS: Nicotine 21 MG PATCH.TD24 TD SCH (10:22)
[2021-10-30] MEDS: Cholecalciferol (D-3) 1,000 UNIT (25MCG) TABLET PO SCH (10:22)
[2021-10-30] MEDS: carvediloL 25 MG TABLET PO SCH ×2 (10:22→17:43)
[2021-10-30] MEDS: Isosorbide MONOnitrate (24 HR) 30 MG TAB.ER.24H PO SCH (10:22)
[2021-10-30] MEDS: Folic Acid 1 MG TABLET PO SCH (10:22)
[2021-10-30] MEDS: *HR* Enoxaparin 40 MG/0.4 ML SYRINGE SQ SCH (10:22)
[2021-10-30] MEDS: Multivit/Ca/Min/Fe/FA 1 TAB TABLET PO SCH (10:22)
[2021-10-30] MEDS: Aspirin 81 MG TAB.CHEW PO SCH (10:22)
[2021-10-30] MEDS: polyethylene glycoL 3350 17 GM POWD.PACK PO SCH (10:23)
[2021-10-30] MEDS: Artificial Tears SOLN 15 ML BOTTLE BOTH EYES SCH ×2 (10:23→20:55)
[2021-10-30] MEDS: Thiamine (B-1) 100 MG TABLET PO SCH (10:23)
[2021-10-30] MEDS: QUEtiapine Fumarate 25 MG TABLET PO SCH (20:50)
[2021-10-30] MEDS: *HR* HYDROcodone/Acet 5/325 mg TABLET PO PRN (23:47)
[2021-10-31] MEDS: *HR* Enoxaparin 40 MG/0.4 ML SYRINGE SQ SCH (09:18)
[2021-10-31] MEDS: Nicotine 21 MG PATCH.TD24 TD SCH (09:20)
[2021-10-31] MEDS: Cholecalciferol (D-3) 1,000 UNIT (25MCG) TABLET PO SCH (09:21)
[2021-10-31] MEDS: polyethylene glycoL 3350 17 GM POWD.PACK PO SCH (09:21)
[2021-10-31] MEDS: Magnesium Oxide 400 MG TABLET PO SCH (09:21)
[2021-10-31] MEDS: Multivit/Ca/Min/Fe/FA 1 TAB TABLET PO SCH (09:21)
[2021-10-31] MEDS: carvediloL 25 MG TABLET PO SCH ×2 (09:21→16:32)
[2021-10-31] MEDS: Artificial Tears SOLN 15 ML BOTTLE BOTH EYES SCH ×2 (09:21→21:03)
[2021-10-31] MEDS: Folic Acid 1 MG TABLET PO SCH (09:21)
[2021-10-31] MEDS: Isosorbide MONOnitrate (24 HR) 30 MG TAB.ER.24H PO SCH (09:21)
[2021-10-31] MEDS: Thiamine (B-1) 100 MG TABLET PO SCH (09:21)
[2021-10-31] MEDS: Aspirin 81 MG TAB.CHEW PO SCH (09:21)
[2021-10-31] MEDS: QUEtiapine Fumarate 25 MG TABLET PO SCH (20:59)
[2021-10-31] MEDS: *HR* HYDROcodone/Acet 5/325 mg TABLET PO PRN (21:04)
[2021-11-01] MEDS: *HR* HYDROcodone/Acet 5/325 mg TABLET PO PRN ×4 (03:47→23:43)
[2021-11-01] MEDS: Aspirin 81 MG TAB.CHEW PO SCH (09:34)
[2021-11-01] MEDS: Magnesium Oxide 400 MG TABLET PO SCH (09:34)
[2021-11-01] MEDS: Cholecalciferol (D-3) 1,000 UNIT (25MCG) TABLET PO SCH (09:34)
[2021-11-01] MEDS: carvediloL 25 MG TABLET PO SCH ×2 (09:35→16:50)
[2021-11-01] MEDS: *HR* Enoxaparin 40 MG/0.4 ML SYRINGE SQ SCH (09:35)
[2021-11-01] MEDS: Multivit/Ca/Min/Fe/FA 1 TAB TABLET PO SCH (09:35)
[2021-11-01] MEDS: Isosorbide MONOnitrate (24 HR) 30 MG TAB.ER.24H PO SCH (09:35)
[2021-11-01] MEDS: Folic Acid 1 MG TABLET PO SCH (09:35)
[2021-11-01] MEDS: polyethylene glycoL 3350 17 GM POWD.PACK PO SCH (09:35)
[2021-11-01] MEDS: Nicotine 21 MG PATCH.TD24 TD SCH (09:35)
[2021-11-01] MEDS: Thiamine (B-1) 100 MG TABLET PO SCH (09:35)
[2021-11-01] MEDS: Artificial Tears SOLN 15 ML BOTTLE BOTH EYES SCH ×2 (11:54→20:29)
[2021-11-01] MEDS: QUEtiapine Fumarate 25 MG TABLET PO SCH (20:28)
[2021-11-02] MEDS: Cholecalciferol (D-3) 1,000 UNIT (25MCG) TABLET PO SCH (07:52)
[2021-11-02] MEDS: Aspirin 81 MG TAB.CHEW PO SCH (07:52)
[2021-11-02] MEDS: Thiamine (B-1) 100 MG TABLET PO SCH (07:52)
[2021-11-02] MEDS: Isosorbide MONOnitrate (24 HR) 30 MG TAB.ER.24H PO SCH (07:52)
[2021-11-02] MEDS: *HR* HYDROcodone/Acet 5/325 mg TABLET PO PRN ×3 (07:52→21:04)
[2021-11-02] MEDS: carvediloL 25 MG TABLET PO SCH ×2 (07:53→13:52)
[2021-11-02] MEDS: *HR* Enoxaparin 40 MG/0.4 ML SYRINGE SQ SCH (07:53)
[2021-11-02] MEDS: Nicotine 21 MG PATCH.TD24 TD SCH (07:53)
[2021-11-02] MEDS: Artificial Tears SOLN 15 ML BOTTLE BOTH EYES SCH ×2 (07:53→21:05)
[2021-11-02] MEDS: Folic Acid 1 MG TABLET PO SCH (07:53)
[2021-11-02] MEDS: Multivit/Ca/Min/Fe/FA 1 TAB TABLET PO SCH (07:53)
[2021-11-02] MEDS: Magnesium Oxide 400 MG TABLET PO SCH (07:53)
[2021-11-02] MEDS: polyethylene glycoL 3350 17 GM POWD.PACK PO SCH (07:53)
[2021-11-02 18:30] VITALS: RESP 16; O2SAT 97
[2021-11-02] MEDS: QUEtiapine Fumarate 25 MG TABLET PO SCH (21:05)
[2021-11-03] MEDS: Cholecalciferol (D-3) 1,000 UNIT (25MCG) TABLET PO SCH (07:36)
[2021-11-03] MEDS: Multivit/Ca/Min/Fe/FA 1 TAB TABLET PO SCH (07:36)
[2021-11-03] MEDS: Thiamine (B-1) 100 MG TABLET PO SCH (07:36)
[2021-11-03] MEDS: Folic Acid 1 MG TABLET PO SCH (07:37)
[2021-11-03] MEDS: *HR* Enoxaparin 40 MG/0.4 ML SYRINGE SQ SCH (07:37)
[2021-11-03] MEDS: Magnesium Oxide 400 MG TABLET PO SCH (07:37)
[2021-11-03] MEDS: Nicotine 21 MG PATCH.TD24 TD SCH (07:37)
[2021-11-03] MEDS: *HR* HYDROcodone/Acet 5/325 mg TABLET PO PRN (07:37)
[2021-11-03] MEDS: Aspirin 81 MG TAB.CHEW PO SCH (07:37)
[2021-11-03] MEDS: Isosorbide MONOnitrate (24 HR) 30 MG TAB.ER.24H PO SCH (07:37)
[2021-11-03] MEDS: polyethylene glycoL 3350 17 GM POWD.PACK PO SCH (07:38)
[2021-11-03] MEDS: Artificial Tears SOLN 15 ML BOTTLE BOTH EYES SCH (07:38)
[2021-11-03] MEDS: carvediloL 25 MG TABLET PO SCH (07:38)
[2021-11-03 07:42] VITALS: BP 141/81; PULSE 73; TEMP 98.6
[2021-11-03 11:34] LABS: BUN/Creatinine Ratio 21 (6-26); Blood Urea Nitrogen 16 mg/dL (8-23); Calcium 9.9 mg/dL (8.6-10.3); Carbon Dioxide 26 mEq/L (23-29); Chloride 101 mEq/L (98-107); Glucose 96 mg/dL (70-105); Osmolality,Calculated 275 (280-300); Sodium 132 mEq/L (136-145); eGFR For African Americans > 60 (> 60); eGFR For Non-African Americans > 60 (> 60)
== END 2021-11-03 12:15 | disposition home or self-care (01) | DRG 897 ==
LOC: INPGRE 20:07
PROVIDERS: ADMIT Internal Medicine; ATTEND Internal Medicine